=== PATIENT | female | born 1990 | race Caucasian/White ===

== ENCOUNTER 2021-12-12 17:46 | Emergency (ER) | payer BC ==
[~2021-12-12] VITALS: Ht 167.6 cm; Wt 95.3 kg
[2021-12-12 18:08] LABS: BASOPHILS # (AUTO) 0.1 (0.0-0.1); BASOPHILS % 0.5 % (0.0-1.0); EOSINOPHILS # (AUTO) 0.5 (0.0-0.4); EOSINOPHILS % 4.5 % (0.0-6.0); HEMATOCRIT 44.4 % (34.2-44.1); HEMOGLOBIN 14.4 g/dL (12.0-16.0); LYMPHOCYTES # (AUTO) 3.9 (1.0-3.2); LYMPHOCYTES % 34.4 % (18.0-39.1); MEAN CORPUSCULAR HEMOGLOBIN 26.8 pg (28-32); MEAN CORPUSCULAR HGB CONC 32.4 g/dL (31-35); MEAN CORPUSCULAR VOLUME 82.5 fL (81-99); MONOCYTES # (AUTO) 0.6 (0.2-0.8); MONOCYTES % 5.4 % (4.4-11.3); NEUTROPHILS # (AUTO) 6.3 (2.1-6.9); NEUTROPHILS % 54.7 % (38.7-80.0); PLATELET COUNT 296 x10e3/uL (140-360); RED BLOOD COUNT 5.38 x10e6/uL (3.6-5.1); RED CELL DISTRIBUTION WIDTH 15.6 % (11.7-14.4)
[2021-12-12] MEDS ORDERED: LACTATED RINGER'S 1,000 ML INJ ONE (18:15)
[2021-12-12 18:26] LABS: ALBUMIN 4.4 g/dL (3.5-5.0); ALBUMIN/GLOBULIN RATIO 0.9 (0.8-2.0); ANION GAP 19.8 mmol/L (8-16); CALCIUM 9.7 mg/dL (8.4-10.2); CREATININE, SERUM 0.99 mg/dL (0.57-1.11); POTASSIUM 3.8 mmol/L (3.5-5.1)
[2021-12-12] MEDS ORDERED: IOPAMIDOL 370 MG/ML 100 ML INFUS..BTL INJ ONE (18:30)
[2021-12-12 18:54] LABS: LIPASE 18 U/L (8-78)
[2021-12-12] MEDS ORDERED: ASPIRIN 81 MG CHEW TAB PO ONE (20:45)
[2021-12-12 22:52] VITALS: BP 99/73
== END 2021-12-12 22:55 | disposition left against medical advice (07) ==
LOC: ER 17:49 → ERHOLD 20:36 → UNDOADMOB 20:36
DX: R42 Dizziness and giddiness (principal); R07.9 Chest pain, unspecified; F41.9 Anxiety disorder, unspecified; Z20.822 Contact with and (suspected) exposure to COVID-19
CPT/HCPCS: 36415; 71260; 80053; 83690; 83880; 84484; 84702; 85025; 93005; 94799; 99284; J7121; Q9967; U0002

== ENCOUNTER 2022-08-12 11:25 | Emergency (ER) | payer BC ==
[~2022-08-12] VITALS: Ht 167.6 cm; Wt 95.3 kg
== END 2022-08-12 12:25 | disposition home or self-care (01) ==
LOC: ER 11:31
DX: F41.9 Anxiety disorder, unspecified (principal); Z95.4 Presence of other heart-valve replacement; F17.210 Nicotine dependence, cigarettes, uncomplicated
CPT/HCPCS: 99282

== ENCOUNTER 2025-04-19 16:36 | Emergency (ER) | payer BC ==
[~2025-04-19] VITALS: Ht 160 cm; Wt 65.8 kg
[2025-04-19 18:49] LABS: LEUKOCYTE ESTERASE ,URINE MODERATE (NEGATIVE); PROTEIN,URINE DIPSTICK 2+ (NEGATIVE); URINE UROBILINOGEN 1 mg/dL (0.2 - 1)
[2025-04-19 18:51] LABS: AMPHETAMINES SCREEN,URINE NEGATIVE (NEGATIVE); BASOPHILS % 0.2 % (0.0-1.0); CANNABINOIDS SCREEN,URINE POSITIVE (NEGATIVE); COCAINE SCREEN,URINE NEGATIVE (NEGATIVE); EOSINOPHILS % 0.3 % (0.0-6.0); LYMPHOCYTES % 10.6 % (18.0-39.1); METHADONE SCREEN, URINE POSITIVE (NEGATIVE); MONOCYTES % 10.0 % (4.4-11.3); NEUTROPHILS % 78.0 % (38.7-80.0); OPIATES SCREEN,URINE NEGATIVE (NEGATIVE); RED CELL DISTRIBUTION WIDTH 14.9 % (11.7-14.4)
[2025-04-19 18:58] LABS: EPITHELIAL CELLS,URINE RARE /LPF; WBC,URINE (MAN) >50 /HPF (0-5)
[2025-04-19] MEDS: SODIUM CHLORIDE 0.9% 1000ML 1,000 ML IV ONE ×2 (19:03→21:09)
[2025-04-19] MEDS: ONDANSETRON HCL INJ 2MG/ML 2ML 2 MG/ML VIAL IV STA (19:03)
[2025-04-19 19:12] LABS: EST GLOMERULAR FILTRATION RATE 64 ML/MIN (>=60)
[2025-04-19] MEDS ORDERED: IOPAMIDOL 370 MG/ML 100 ML INFUS..BTL INJ ONE ×2 (19:22→20:13)
[2025-04-19] MEDS: ACETAMINOPHEN 325 MG TAB PO ONE (19:29)
[2025-04-19 21:10] VITALS: TEMP 99.2
[2025-04-19 22:31] VITALS: PULSE 67; RESP 17
[2025-04-19] MEDS ORDERED: CEPHALEXIN500 MG PO (23:29)
[2025-04-19] MEDS ORDERED: ONDANSETRON ODT4 MG PO (23:29)
[2025-04-19 23:49] VITALS: BP 99/58; PULSE 63; RESP 17; TEMP 98.7; O2SAT 100
== END 2025-04-19 23:55 | disposition home or self-care (01) ==
LOC: ER 18:17
DX: R50.9 Fever, unspecified (principal); N12 Tubulo-interstitial nephritis, not specified as acute or chronic; R11.2 Nausea with vomiting, unspecified; R51.9 Headache, unspecified; F41.9 Anxiety disorder, unspecified; Z95.4 Presence of other heart-valve replacement
CPT/HCPCS: 36415; 71260; 74177; 76705; 80053; 80307; 81001; 83690; 84702; 85025; 85379; 87086; 87186; 93005; 99284; J0696; J2405; J7030; Q9967